=== PATIENT | male | born 1985 | race American Indian/Alaskan Native ===

== ENCOUNTER → 2016-09-29 | Outpatient (CLI) | payer OTHER ==
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
== END ==
LOC: M ADAMS 09:24
PROVIDERS: ATTEND Physician Assistant Medical
DX: S42.021A Displaced fracture of shaft of right clavicle, initial encounter for closed fracture (principal); V86.99XA Unspecified occupant of other special all-terrain or other off-road motor vehicle injured in nontraffic accident, initial encounter; Y92.9 Unspecified place or not applicable; Y93.9 Activity, unspecified; Y99.9 Unspecified external cause status